=== PATIENT | male | born 1970 | race Caucasian/White ===

== ENCOUNTER 2018-12-09 11:27 | Day surgery (SDC) | payer OTHER ==
[~2018-12-09] VITALS: Ht 185.4 cm; Wt 132.9 kg
[~2018-12-09 11:27] MED LIST: AMLO10TA5 PO; ECOT81TA5 PO; LISI40TA PO; MULT1TAB8 PO; NS 1,000 ML IV SCH; ROSU40TA3 PO
[2018-12-09] MEDS ORDERED: PROPOFOL 200 MG/20 ML VIAL As Ordered ONE (12:59)
[2018-12-09] MEDS ORDERED: LIDOCAINE 2% INJ 100 MG/5 ML SDV (FOR ANES.) As Ordered ONE (12:59)
--- NOTE | 2018-12-09 13:03 | ROOR ---
Patient Name: Josue Michelle Procedure Date: 12/09/2018 12:37 PM Date of : 1970 Age: 48 Room: [facility] Gender: Male Note Status: Finalized Procedure: Colonoscopy Indications: Screening for colorectal malignant neoplasm Providers: Sagar Church MD Referring MD: Iliana Garrison NP Requesting Provider: Medicines: Monitored Anesthesia Care Complications: No immediate complications. Procedure: Pre-Anesthesia Assessment: - Prior to the procedure, a History and Physical was performed, and patient medications and allergies were reviewed. The patient is competent. The risks and benefits of the procedure and the sedation options and risks were discussed with the patient. All questions were answered and informed consent was obtained. Patient identification and proposed procedure were verified by the physician, the nurse and the anesthesiologist in the endoscopy suite. Mental Status Examination: alert and oriented. Airway Examination: normal oropharyngeal airway and neck mobility. Respiratory Examination: clear to auscultation. CV Examination: normal. Prophylactic Antibiotics: The patient does not require prophylactic antibiotics. Prior Anticoagulants: The patient has taken no previous anticoagulant or antiplatelet agents. ASA Grade Assessment: II - A patient with mild systemic disease. After reviewing the risks and benefits, the patient was deemed in satisfactory condition to undergo the procedure. The anesthesia plan was to use monitored anesthesia care (MAC). Immediately prior to administration of medications, the patient was re-assessed for adequacy to receive sedatives. The heart rate, respiratory rate, oxygen saturations, blood pressure, adequacy of pulmonary ventilation, and response to care were monitored throughout the procedure. The physical status of the patient was re-assessed after the procedure. The Colonoscope was introduced through the anus and advanced to the cecum, identified by appendiceal orifice and ileocecal valve. The colonoscopy was performed without difficulty. The patient tolerated the procedure well. The quality of the bowel preparation was good. Findings: Hemorrhoids were found on perianal exam. A few small-mouthed diverticula were found in the sigmoid colon. Estimated blood loss: none. A diminutive polyp was found in the sigmoid colon. The polyp was sessile. The polyp was removed with a jumbo cold forceps. Resection and retrieval were complete. Estimated blood loss was minimal. The retroflexed view of the distal rectum and anal verge was normal and showed no anal or rectal abnormalities. Impression: - Hemorrhoids found on perianal exam. - Diverticulosis in the sigmoid colon. - One diminutive polyp in the sigmoid colon, removed with a jumbo cold forceps. Resected and retrieved. - The distal rectum and anal verge are normal on retroflexion view. Recommendation: - Discharge patient to home (ambulatory). - Await pathology results. - Repeat colonoscopy in 10 years for surveillance based on pathology results. Sagar Church MD Sagar Church MD 12/09/2018 1:02:53 PM Electronically signed by Sagar Church MD Number of Addenda: 0 Note Initiated On: 12/09/2018 12:37 PM Estimated Blood Loss: Estimated blood loss was minimal.
[2018-12-09 13:20] VITALS: BP 132/80
== END 2018-12-09 13:29 | disposition home or self-care (01) ==
LOC: M OPP 11:27
PROVIDERS: ATTEND Surgery
DX: Z12.11 Encounter for screening for malignant neoplasm of colon (principal); K63.5 Polyp of colon; K64.8 Other hemorrhoids; K57.30 Diverticulosis of large intestine without perforation or abscess without bleeding; I10 Essential (primary) hypertension; Z79.899 Other long term (current) drug therapy; Z87.891 Personal history of nicotine dependence

== ENCOUNTER → 2020-10-25 | Outpatient (CLI) | payer OTHER ==
[~2020-10-25] MED LIST changes: -AMLO10TA5 PO; +AMLO1TAB25 PO; -LISI40TA PO; +LISI40TA4 PO; -NS 1,000 ML IV SCH; -ROSU40TA3 PO; +ROSU40TA4 PO
--- NOTE | 2020-10-27 10:45 | SLEEPCENT ---
NOCTURNAL POLYSOMNOGRAPHY DATE: 10/25/2020 ORDERED BY: Kendrick Dillard M.D. Nocturnal polysomnography was performed for evaluation of sleep physiology in this patient with a history of hypertension. 6 hours and 49 minutes of data were reviewed. There were 317 minutes of sleep identified. Sleep latency was mildly prolonged at 33 minutes. REM latency was short at 53.5 minutes. Sleep architecture showed poor progression and some fragmentation. Four brief REM cycles were appreciated. Overall sleep efficiency was 78.5%. The electrocardiogram showed a sinus rhythm with an average heart rate of 62 beats per minute. EEG showed normal waveforms for wake and sleep. There were 82 respiratory events identified of 10 seconds in duration or greater for an apnea-hypopnea index of 15.5. The events were obstructive, not exclusive to sleep stage, and more frequency but not exclusive to the supine posture. Arousals from respiratory events occurred 7.2 times per hour, and oxygen desaturations were seen into the 70s. There was some minor limb activity. Arousals from limb events were few. Snoring was noted over the entire study. IMPRESSION: Obstructive sleep apnea syndrome (G47.33), apnea-hypopnea index 15.5. RECOMMENDATION: The patient should be encouraged to return to [facility]. In the interim, alcohol and sedative avoidance should be practiced and caution exercised during the operation of motor vehicles.
== END ==
LOC: M SLEEP 20:00
PROVIDERS: ATTEND Internal Medicine
DX: G47.33 Obstructive sleep apnea (adult) (pediatric) (principal)

== ENCOUNTER → 2020-11-13 | Outpatient (CLI) | payer OTHER ==
--- NOTE | 2020-11-15 08:45 | SLEEPCENT ---
NOCTURNAL POLYSOMNOGRAPHY CPAP TITRATION DATE: 11/13/2020 ORDERED BY: Kendrick Dillard M.D. Nocturnal polysomnography was performed for the titration of pressure therapy in this patient with obstructive sleep apnea syndrome with apnea-hypopnea index of 15.5. For testing a ResMed Quattro full face mask of large size was used, 4 cm of water pressure were applied to the circuit, and the lights were extinguished. 7 hours and 24 minutes of data were reviewed. There were 376 minutes of sleep identified. Sleep latency was mildly prolonged at 34.5 minutes. REM latency was short at 54 minutes. Sleep architecture was good with five REM cycles. Overall sleep efficiency was 85.6%. The electrocardiogram showed a sinus rhythm with an average heart rate of 68 beats per minute. EEG showed normal waveforms for wake and sleep. Respiratory events were best palliated with CPAP at a pressure of +7 and remaining measures of sleep physiology were normal. IMPRESSION: Obstructive sleep apnea syndrome (G47.33). RECOMMENDATION: Nightly use of pressure therapy 7 cm of water.
== END ==
LOC: M SLEEP 20:00
PROVIDERS: ATTEND Internal Medicine
DX: G47.33 Obstructive sleep apnea (adult) (pediatric) (principal)

== ENCOUNTER → 2022-01-03 | Outpatient (CLI) | payer OTHER | LOC: M CLY 10:54 | PROVIDERS: ATTEND Nurse Practitioner Family | DX: M18.11 Unilateral primary osteoarthritis of first carpometacarpal joint, right hand (principal); M25.531 Pain in right wrist ==

== ENCOUNTER → 2024-02-11 | Outpatient (CLI) | payer OTHER ==
[~2024-02-11] MED LIST changes: -ROSU40TA4 PO; +ROSU40TA63 PO
== END ==
LOC: M RAD 08:55
PROVIDERS: ATTEND Internal Medicine
DX: G43.909 Migraine, unspecified, not intractable, without status migrainosus (principal)

== ENCOUNTER → 2025-07-18 | Outpatient (REF) | payer OTHER ==
[~2025-07-18] MED LIST changes: +LISI40TA10 PO; -LISI40TA4 PO; -ROSU40TA63 PO; +ROSU40TA81 PO
== END ==
LOC: M LAB REF 12:02 → EEVIPCON 12:02
DX: L03.011 Cellulitis of right finger (principal)